=== PATIENT | male | born 1955 | race Caucasian/White ===

== ENCOUNTER 2017-03-11 16:09 | Observation (INO) | payer MEDICARE, OTHER ==
[~2017-03-11] VITALS: Ht 180.3 cm; Wt 65.4 kg
[2017-03-11] MEDS ORDERED: HYDROCHLOROTHIA25 MG PO (16:26)
[2017-03-11] MEDS ORDERED: AMLODIPINE BESYL5 MG PO (16:27)
[2017-03-11] MEDS ORDERED: LISINOPRIL40 MG PO (16:27)
--- NOTE | 2017-03-11 19:12 | EKG ---
[facility] [address] [facility] [place] [address] Signed Normal sinus rhythm Normal ECG No previous ECGs available Confirmed by MARE DUTTON MD ([id number]) on 03/11/2017 7:12:41 PM Electronically Signed By: MARE DUTTON MD 03/11/171911 PATIENT NAME: ALEXANDRA BOOKER Electrocardiogram DATE OF : 55 PHYSICIAN: MARE DUTTON MD REPORT #: [id number] REPORT IS CONFIDENTIAL AND NOT TO BE RELEASED WITHOUT AUTHORIZATION
--- NOTE | 2017-03-11 19:23 | NUR ---
IN TO TAKE OVER PT, REPORT RECV'D FROM VANESSA MARIO. ASSESSMENT COMPLETE. PT ADMITTED TO 110 FOR SYNCOPE. PT IS AAO X3. NO FURTHER NEEDS AT THIS TIME. CALL LIGHT IN REACH.
--- NOTE | 2017-03-11 21:12 | NUR ---
IN TO GIVE PM MEDICATION, PT SLEEPING. PT AWAKEN TO VOICE AND TOUCH. OFFERED NICOTINE PATCH, PT DECLINED. MEDICATIONS GIVEN. NO FURTHER NEEDS AT THIS TIME. CALL LIGHT IN REACH. AT BEDSIDE.
--- NOTE | 2017-03-11 21:30 | NUR ---
PT'S OUT TO TALK TO RN. RN NOTIFIED THAT PT HAS NOT SMOKED SINCE 2 PM TODAY, FEEL HE WOULD BENEFIT FROM NICOTINE PATCH. IN TO PT ROOM, PT AGREES TO PATCH, PATCH APPLIED. NO FURTHER NEEDS AT THIS TIME. CALL LIGHT IN PLACE.
--- NOTE | 2017-03-11 21:54 | NUR ---
CCU CALLED TO REPORT THAT PT HR WAS 39-41. DR. DUTTON ON THE FLOOR, LET HIM KNOW ABOUT SINUS BRADYCARDIA AND THAT PT IS SLEEPING. NO NEW ORDERS RECEIVED AT THIS TIME.
--- NOTE | 2017-03-11 22:59 | NUR ---
NEW IV SITE PLACED BY JAMIL MARIO IN THE L HAND. IVF INFUSING. PT RESTING. NO FURTHER NEEDS AT THIS TIME. CALL LIGHT IN PLACE.
--- NOTE | 2017-03-11 23:45 | NUR ---
IN TO CHECK ON PT, PT SLEEPING. NO APPARENT SIGNS OF DISTRESS. RR EVEN AND UNLABORED. IVF INFUSING. CALL LIGHT IN REACH, AT BEDSIDE.
--- NOTE | 2017-03-12 01:15 | NUR ---
IN TO CHECK ON PT, PT AWAKE STANDING AT BEDSIDE. PT ASSISTED TO BATHROOM, TOLERATED WELL. IVF REPLACED. NO FURTHER NEEDS AT THIS TIME. CALL LIGHT WITH IN REACH.
--- NOTE | 2017-03-12 05:09 | NUR ---
PT ADMITED TO FLOOR DURING CHANGE OF SHIFT. OOB WITH 1 PERSON STANDBY ASSIST. DENIES DIZZINESS OR LIGHTHEADEDNESS. AMBULATES TO BATHRROM. 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 TELE #9, SINUS BRADYCARDIA WORSE WHEN THE PT IS SLEEPING. DR. DUTTON AWARE. IVF NS WITH 40 KCL @ 200 MLS/HR INFUSING. VITAL SIGNS STABLE. NICODERM PATCH IN PLACE. DOES NOT USE CALL LIGHT APPROPRIATELY. AT BEDSIDE.
--- NOTE | 2017-03-12 07:10 | NUR ---
BEDSIDE HANDOFF REPORT RECEIVED FROM BROOD STATION MANAGER RN. PT RESTING IN BED. PT DENIES NEEDS AT THIS TIME.
--- NOTE | 2017-03-12 09:00 | NUR ---
PT RESTING IN BED. PT DENIES PAIN. PT ON ROOM AIR, LUNG SOUNDS CLEAR, DENIES SOB. PT ON TELE #9, SINUS SHADI, DENIES LIGHTHEADEDNESS. PT TOLERATING REGULAR DIET, BOWEL TONES ACTIVE. IV FLUIDS INFUSING TO RIGHT FA, D5 1/2NS +20K AT 125 ML/HR. PT WITOUT EDEMA. PT DENIES NEEDS AT THIS TIME. AT BEDSIDE.
[2017-03-12] MEDS ORDERED: VITAMIN C100 MG PO (09:07)
[2017-03-12] MEDS ORDERED: ASPIRIN EC81 MG PO (09:08)
[2017-03-12] MEDS ORDERED: LIPITOR40 MG PO (09:09)
--- NOTE | 2017-03-12 09:11 | NUR ---
MED REC COMPLETE WITH [facility] REFILL HISTORY.
--- NOTE | 2017-03-12 11:25 | NUR ---
REFUSED SHOWER TODAY. BUT DID WASH FACE AND HANDS AND ARMS.
== END 2017-03-12 12:15 | disposition home or self-care (01) ==
LOC: ED 16:09 → MS 16:11
PROVIDERS: ADMIT Internal Medicine
DX: N17.9 Acute kidney failure, unspecified (principal); E86.0 Dehydration; I95.1 Orthostatic hypotension; E87.6 Hypokalemia; E83.42 Hypomagnesemia; I10 Essential (primary) hypertension; K50.90 Crohn's disease, unspecified, without complications; F17.210 Nicotine dependence, cigarettes, uncomplicated; E78.5 Hyperlipidemia, unspecified; Z79.899 Other long term (current) drug therapy; Z79.82 Long term (current) use of aspirin; Z23 Encounter for immunization
CPT/HCPCS: 36415; 71010; 80048; 80053; 81001; 82570; 83605; 83735; 84300; 84484; 84540; 85025; 90674; 93005; 93010; 96361; 96365; 96372; 96375; 99285; G0008; G0378; G0480; J1650; J3475; J7030

== ENCOUNTER 2017-07-08 20:49 | Emergency (ER) | payer MEDICARE ==
[~2017-07-08] VITALS: Ht 177.8 cm; Wt 68.5 kg
[~2017-07-08 20:49] MED LIST: AMLODIPINE BESYL5 MG PO; ASPIRIN EC81 MG PO; HYDROCHLOROTHIA25 MG PO; LIPITOR40 MG PO; LISINOPRIL40 MG PO; VITAMIN C100 MG PO
[2017-07-08] MEDS ORDERED: COUGH & COLD S118 ML PO (21:05)
[2017-07-08] MEDS ORDERED: METOPROLOL SUCC50 MG PO (21:06)
--- NOTE | 2017-07-09 19:33 | EKG ---
[facility] [address] [facility] [place] [address] Signed Normal sinus rhythm Septal infarct , age undetermined Abnormal ECG When compared with ECG of 11-MAR-2017 16:18, Questionable change in QRS axis Confirmed by MARE DUTTON MD ([id number]) on 07/09/2017 7:33:38 PM Electronically Signed By: MARE DUTTON MD 07/09/171932 PATIENT NAME: ADEALEXANDRA Electrocardiogram DATE OF : 55 PHYSICIAN: MARE DUTTON MD REPORT #: [id number] REPORT IS CONFIDENTIAL AND NOT TO BE RELEASED WITHOUT AUTHORIZATION
== END 2017-07-09 | disposition home or self-care (01) ==
LOC: ED 20:49
DX: R56.9 Unspecified convulsions (principal); I10 Essential (primary) hypertension; E78.00 Pure hypercholesterolemia, unspecified; F17.200 Nicotine dependence, unspecified, uncomplicated; Z79.899 Other long term (current) drug therapy; Z79.82 Long term (current) use of aspirin
CPT/HCPCS: 70450; 80053; 84484; 85025; 93005; 93010; 99284

== ENCOUNTER 2017-07-13 20:56 | Emergency (ER) | payer MEDICARE, OTHER ==
[~2017-07-13] VITALS: Ht 177.8 cm; Wt 68.0 kg
[~2017-07-13 20:56] MED LIST changes: +COUGH & COLD S118 ML PO; +METOPROLOL SUCC50 MG PO
[2017-07-13] MEDS ORDERED: HYDROCHLOROTHIA25 MG PO (21:11)
--- NOTE | 2017-07-14 18:23 | EKG ---
[facility] [address] [facility] [place] [address] Signed Sinus rhythm with occasional premature ventricular complexes Right atrial enlargement Borderline ECG When compared with ECG of 08-JUL-2017 21:19, premature ventricular complexes are now present Questionable change in QRS axis Confirmed by AGUSTÍN TERRELL MD ([id number]) on 07/14/2017 6:23:30 PM Electronically Signed By: AGUSTÍN TERRELL MD 07/14/17 1823 PATIENT NAME: ALEXANDRA BOOKER JAIRO Electrocardiogram DATE OF : 55 PHYSICIAN: AGUSTÍN TERRELL MD REPORT #: [id number] REPORT IS CONFIDENTIAL AND NOT TO BE RELEASED WITHOUT AUTHORIZATION
== END 2017-07-14 00:23 | disposition short-term general hospital (02) ==
LOC: ED 20:56
PROC: 0T9B70Z Drainage of Bladder with Drainage Device, Via Natural or Artificial Opening (ICD-10-PCS; principal; 2017-07-13)
DX: J11.1 Influenza due to unidentified influenza virus with other respiratory manifestations (principal); N17.9 Acute kidney failure, unspecified; I10 Essential (primary) hypertension; E78.00 Pure hypercholesterolemia, unspecified; F17.200 Nicotine dependence, unspecified, uncomplicated; Z79.899 Other long term (current) drug therapy; Z79.82 Long term (current) use of aspirin
CPT/HCPCS: 51702; 70450; 71045; 80053; 81001; 82550; 84484; 85025; 85610; 85730; 87502; 93005; 93010; 96360; 96361; 99285; G0480; J7030